=== PATIENT | male | born 1975 | race Caucasian/White ===

== ENCOUNTER 2024-04-23 11:29 | Emergency (ER) | payer OTHER, SELFPAY ==
[2024-04-23 11:35] VITALS: BP 170/107; PULSE 80; RESP 14; TEMP 36.7; O2SAT 100; BMI 25.8
--- NOTE | 2024-04-23 11:44 | ED.UPPEXIN ---
HPI - Extremity Injury (Upper) <Dilma Lundberg PA-C - Last Filed: 04/23/24 14:33> General Chief Complaint: Extremity Injury, Upper Stated Complaint: maybe have broken left middle finger Time Seen by Provider: 04/23/24 11:43 Source: patient Mode of arrival: Ambulatory History of Present Illness HPI narrative: Patient is a very pleasant 49-year-old male presents to the emergency room department today with left middle finger abnormality. Patient was picking up a 6 ft mat from the floor that was wet that we would probably about 15 lb. He gripped the mat with his hand, lifted up about hip length and was pulling it. Sudden pop in the distal aspect of his left middle finger. Now the patient can not extend at the PIP. He has no other physical complaints. Review of Systems <Dilma Lundberg PA-C - Last Filed: 04/23/24 14:33> Review of Systems Narrative: Negative except as above Musculoskeletal Comments: Unable to extend the distal aspect of his left middle finger Patient History <Dilma Lundberg PA-C - Last Filed: 04/23/24 14:33> Social History Smoking Status: Never smoker Smoking Status: Never smoker alcohol intake frequency: other Substance Use Type: does not use Exam <Dilma Lundberg PA-C - Last Filed: 04/23/24 14:33> Initial Vital Signs Initial Vital Signs: Vital Signs Temperature 98.1 F 04/23/24 11:35 Pulse Rate 80 04/23/24 11:35 Respiratory Rate 14 04/23/24 11:35 Blood Pressure 170/107 H 04/23/24 11:35 Pulse Oximetry 100 04/23/24 11:35 Oxygen Delivery Method Room Air 04/23/24 11:35 Const General: cooperative, healthy appearing, comfortable, well developed, well groomed, No acute distress, No in distress and No anxious Eyes Pupils: PERRL EOM: EOM intact bilaterally Skin Other: Warm pink and dry Neuro General: patient alert, patient awake, patient oriented x3, oriented and gait normal Cognition: normal cognition Speech: speech normal Gait: normal gait Extrem Other: Bilateral lower extremities, right upper extremities, range of motion, strength, pulses, cap refill preserved. Left upper extremity hand exam. Cap refill is preserved. Pulses are present. Left middle finger exam. Patient is able to flex and extend at the MP joint, PIP joint, limited range of motion at the PIP joint, the finger is slightly flexed at the PIP joint, the patient has some minimal flexion and minimal extension at the D IP joint of the left middle finger. Psych Appearance: grossly normal Mental Status: mental status grossly normal Speech and Movement: speech and movement normal Mood: congruent mood Affect: normal affect Attitude: cooperative Thought Process: normal Thought Content: normal Judgment: judgment good <Kristy Sarmiento DO - Last Filed: 04/24/24 08:43> Initial Vital Signs Initial Vital Signs: Vital Signs Temperature 98.1 F 04/23/24 11:35 Pulse Rate 80 04/23/24 11:35 Respiratory Rate 14 04/23/24 11:35 Blood Pressure 170/107 H 04/23/24 11:35 Pulse Oximetry 100 04/23/24 11:35 Oxygen Delivery Method Room Air 04/23/24 11:35 Course <Dilma Lundberg PA-C - Last Filed: 04/23/24 14:33> Orders Ordered: ED Orders 04/23/24 11:43 XR finger LT min 2V Stat Vital Signs Vital signs: Vital Signs - 8 hr 04/23/24 11:35 Temperature 98.1 F Pulse Rate 80 Respiratory Rate 14 Blood Pressure 170/107 H Pulse Oximetry 100 Oxygen Delivery Method Room Air <Kristy Sarmiento DO - Last Filed: 04/24/24 08:43> Orders Ordered: ED Orders 04/23/24 11:43 XR finger LT min 2V Stat Vital Signs Vital signs: Vital Signs - 8 hr 04/23/24 11:35 Temperature 98.1 F Pulse Rate 80 Respiratory Rate 14 Blood Pressure 170/107 H Pulse Oximetry 100 Oxygen Delivery Method Room Air MDM - Extremity Injury (Upper) <TIFFANY Penny Last Filed: 04/23/24 14:33> Imaging Data Extremity x-ray #1: Radiologist's Impression: [address] [address] XRay Report Signed Patient: Colton Farmer MR#: [id number] : 1975 Acct:[id number] Age/Sex: 49 / M Date of Service: 04/23/24 Loc: ED Accession Number: [id number] Procedure: XR finger LT min 2V Ordering Provider: Dilma Lundberg PA-C PROCEDURE: XR FINGER LT MIN 2V INDICATIONS: Can not extend his finger TECHNIQUE: AP hand, 2 views of the 3rd finger(s) acquired. COMPARISON: None. FINDINGS: Bones: No fractures or dislocations. No suspicious bony lesions. There is a flexion abnormality persisting at the 3rd distal interphalangeal joint Soft tissues: No suspicious soft tissue calcifications. IMPRESSION: No acute bony abnormality. Flexion abnormality as discussed likely is soft tissue in origin (more likely a flexor tendon adhesion rather than extensor tendon rupture). Dictated by: Yordy Irwin M.D. on 04/23/2024 at 12:04 Approved by: Yordy Irwin M.D. on 04/23/2024 at 12:[address] [facility] Narrative Medical decision making narrative: Pleasant right-hand dominant male presents to the emergency room department with obvious extensor tendon injury to the left middle PIP joint. X-rays negative for fracture Exam mallet finger Splinted L and I paperwork filled out Referral to ortho Differential diagnosis mallet finger Discharge Plan Departure Patient Disposition: Home Clinical Impression: Mallet deformity of left middle finger Activity Restrictions/Additional Instructions: Splint for comfort, you will need to follow up with Orthopedics Referrals: Provider,Nettie BILLY [Primary Care Provider] - Liliana Marr MD [Physician] - (You are being referred to the provider (or provider group) listed but no appointment has been made. Please call the provider?s office within the next day or two at the phone number above to make an appointment. Right middle finger mallet) Stand Alone Forms: Patient Portal/API ED Sign-out <Kristy Sarmiento, - Last Filed: 04/24/24 08:43> Cosign ED Attending Srinivasanature Attestation: I was available for consultation.
== END 2024-04-23 12:31 | disposition home or self-care (01) ==
PROVIDERS: Emergency Provider Physician Assistant
DX: S69.92XA Unspecified injury of left wrist, hand and finger(s), initial encounter (principal); X58.XXXA Exposure to other specified factors, initial encounter
CPT/HCPCS: 29130; 73140; 99281; 99283